=== PATIENT | female | born 1990 | race American Indian/Alaskan Native ===

== ENCOUNTER 2016-10-10 12:12 | Emergency (ER) | payer OTHER ==
[2016-10-10] MEDS ORDERED: MORPHINE IV ONE (13:45)
[2016-10-10 13:48] LABS: Basophils % (Auto) 0.2 % (0.0-1.8); Hematocrit 37.3 % (30.3-42.9); Mean Corpuscular HGB Conc 32 % (30-34); Mean Corpuscular Hemoglobin 27 pg (28-32); Mean Corpuscular Volume 85 fl (79-97); Platelet Count 304 K/mm3 (140-440); Red Blood Count 4.39 M/mm3 (3.65-5.03); Red Cell Distribution Width 14.3 % (13.2-15.2); White Blood Count 11.1 K/mm3 (4.5-11.0)
[2016-10-10 14:03] LABS: Anion Gap 14 mmol/L; BUN/Creatinine Ratio 18.33; Blood Urea Nitrogen 11 mg/dL (7-17); Calcium 8.8 mg/dL (8.4-10.2); Carbon Dioxide 26 mmol/L (22-30); Chloride 100.2 mmol/L (98-107); Glucose 127 mg/dL (65-100); Sodium 136 mmol/L (137-145)
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
[2016-10-10] MEDS ORDERED: TORADOL ONE (15:52)
[2016-10-10] MEDS ORDERED: TORADOL IV ONE (15:53)
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
[2016-10-10 17:57] VITALS: BP 132/75
== END 2016-10-10 17:57 | disposition home or self-care (01) ==
LOC: ED 12:12
DX: M54.2 Cervicalgia (principal); M25.562 Pain in left knee; M79.602 Pain in left arm; V49.49XA Driver injured in collision with other motor vehicles in traffic accident, initial encounter; Y93.9 Activity, unspecified; Y92.9 Unspecified place or not applicable; Y99.9 Unspecified external cause status
CPT/HCPCS: 29105; 29505; 36415; 70450; 72125; 72170; 73060; 73070; 73562; 73610; 80048; 84703; 85025; 96374; 96375; 99285; J1885; J2270

== ENCOUNTER 2020-01-20 16:26 | Emergency (ER) | payer OTHER ==
[2020-01-20 16:53] VITALS: BP 141/96
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
[2020-01-20] MEDS ORDERED: IBUPROFEN 800 MG TAB ONE (17:32)
[2020-01-20] MEDS ORDERED: IBUPROFEN 800 MG TAB PO ONE (17:32)
--- NOTE | 2020-01-20 19:52 | Emergency Department Report ---
ED Lower Extremity HPI - General Chief Complaint: Extremity Injury, Lower Stated Complaint: LFT ANKLE INJURY/PAIN Time Seen by Provider: 01/20/20 19:36 Source: patient Mode of arrival: Wheelchair Limitations: No Limitations - History of Present Illness MD Complaint: ankle injury -: Sudden Injury: Ankle: Left Type of Injury: inversion (while getting out of a truck at work) Improves With: nothing Worsens With: movement, palpation Associated Symptoms: snap/pop sensation, swelling - Related Data Previous Rx's Medication Instructions Recorded Last Taken Type Diclofenac Dr [Voltarejennifer Masterson] 75 mg PO TID #15 tablet 01/20/20 Unknown Rx traMADoL [Ultram 50 MG tab] 50 mg PO Q6HR PRN #16 tablet 01/20/20 Unknown Rx Allergies Allergy/AdvReac Type Severity Reaction Status Date / Time acetaminophen [From Tylenol] Allergy Swelling Verified 10/10/16 12:54 ED Review of Systems ROS: Stated complaint: LFT ANKLE INJURY/PAIN Other details as noted in HPI Comment: All other systems reviewed and negative ED Past Medical Hx - Past Medical History Previous Medical History?: Yes Hx Asthma: Yes Additional medical history: Yeung Parkinsons White - Surgical History Past Surgical History?: Yes Additional Surgical History: Ablation for Yeung Parkinsons White - Social History Smoking Status: Never Smoker Substance Use Type: Alcohol - Medications Home Medications: Home Medications Medication Instructions Recorded Confirmed Last Taken Type Diclofenac Dr [Voltaren Dr] 75 mg PO TID #15 tablet 01/20/20 Unknown Rx traMADoL [Ultram 50 MG tab] 50 mg PO Q6HR PRN #16 tablet 01/20/20 Unknown Rx ED Physical Exam - General Limitations: No Limitations General appearance: alert, in no apparent distress - Head Head exam: Present: atraumatic, normocephalic - Eye Eye exam: Present: normal appearance, PERRL, EOMI Pupils: Present: normal accommodation - ENT ENT exam: Present: normal exam, normal orophraynx, mucous membranes moist, TM's normal bilaterally - Neck Neck exam: Present: normal inspection, full ROM - Respiratory Respiratory exam: Present: normal lung sounds bilaterally. Absent: respiratory distress, wheezes, rales, chest wall tenderness - Cardiovascular Cardiovascular Exam: Present: regular rate, normal rhythm. Absent: systolic murmur, diastolic murmur, rubs, gallop - GI/Abdominal GI/Abdominal exam: Present: soft, normal bowel sounds. Absent: distended, tenderness, guarding, hyperactive bowel sounds, hypoactive bowel sounds, organomegaly - Extremities Exam Extremities exam: Present: normal inspection, tenderness - Expanded Lower Extremity Exam Left Ankle exam: Present: tenderness, swelling. Absent: laceration, ecchymosis, crepidus, dislocation Foot/Toe exam: Present: normal inspection Neuro vascular tendon exam: Absent: abnormal cap refill, sensory deficit, tendon deficit, extremity cold to touch, decreased fine/light touch, foot drop 1 - Swelling and tenderness to this region. No ecchymosis. - Back Exam Back exam: Present: normal inspection - Neurological Exam Neurological exam: Present: alert, oriented X3 - Psychiatric Psychiatric exam: Present: normal affect, normal mood - Skin Skin exam: Present: warm, dry, intact, normal color. Absent: rash ED Course Vital Signs 01/20/20 16:52 Temperature 97.9 F Pulse Rate 82 Respiratory 16 Rate Blood Pressure 141/96 [Right] O2 Sat by Pulse 100 Oximetry - Procedure Description Procedures done: Placed in a Velcro stirrup splint and provided crutches for the left ankle neurovascularly intact Critical care attestation.: If time is entered above; I have spent that time in minutes in the direct care of this critically ill patient, excluding procedure time. ED Disposition Clinical Impression: Left ankle sprain Disposition: DC- TO HOME OR SELFCARE Is pt being admited?: No Does the pt Need Aspirin: No Condition: Stable Instructions: Ankle Sprain (ED) Prescriptions: traMADoL [Ultram 50 MG tab] 50 mg PO Q6HR PRN #16 tablet PRN Reason: Pain Diclofenac Dr [Voltaren ] 75 mg PO TID #15 tablet Referrals: PRIMARY CARE, [Primary Care Provider] - 3-5 Days LAURENCE KEARNEY MD [Staff Physician] - 3-5 Days
[2020-01-20] MEDS ORDERED: ONDANSETRON 4 MG ODT TAB PO ONE (19:54)
[2020-01-20] MEDS ORDERED: traMADol 50 MG TAB PO ONE (19:54)
[2020-01-20] MEDS ORDERED: ONDANSETRON 4 MG ODT TAB ONE (19:57)
[2020-01-20] MEDS ORDERED: traMADol 50 MG TAB ONE (19:57)
== END 2020-01-20 20:22 | disposition home or self-care (01) ==
LOC: ED 16:26
DX: S93.402A Sprain of unspecified ligament of left ankle, initial encounter (principal); J45.909 Unspecified asthma, uncomplicated; Z98.890 Other specified postprocedural states; Z79.899 Other long term (current) drug therapy; Z88.8 Allergy status to other drugs, medicaments and biological substances; X58.XXXA Exposure to other specified factors, initial encounter; Y93.89 Activity, other specified; Y92.89 Other specified places as the place of occurrence of the external cause; Y99.8 Other external cause status
CPT/HCPCS: Q0162